=== PATIENT | male | born 1960 | race Caucasian/White ===

== ENCOUNTER → 2018-12-07 10:07 | Outpatient (CLI) | payer MEDICARE, SELFPAY ==
[2018-12-07 10:36] LABS: Erythrocyte Sedimentation Rate 3 mm/hr (0-20)
== END ==
PROVIDERS: Family Provider Internal Medicine; PCP Internal Medicine; Referring Provider Psychiatry & Neurology Neurology; Visit Provider Psychiatry & Neurology Neurology
DX: R51 Headache (principal)
CPT/HCPCS: 36415; 85652

== ENCOUNTER → 2018-12-23 09:16 | Outpatient (CLI) | payer OTHER, SELFPAY ==
--- NOTE | 2018-12-23 11:03 | MRI_ITS ---
STUDY: MRI BRAIN WITHOUT CONTRAST REASON FOR EXAM: Male, 58 years old. The patient presents with a history of headaches and seizures. TECHNIQUE: Standardized multiplanar fat and water weighted pulse sequences were obtained. COMPARISON: MRI BRAIN-April 29, 2017 FINDINGS: There is focal encephalomalacia of the gyrus rectus of the inferior left frontal lobe with adjacent white matter gliosis (axial T2 series 5, image 14; axial T2 FLAIR series 6, image 14. There is a second area of focal cortical gliosis involving the posterior superior frontal gyrus of the right cerebral hemisphere (axial T2 FLAIR series 6, image 22), which is unchanged as compared to the prior study of April 29, 2017. The multiple areas of white matter gliosis and encephalomalacia suggest traumatic injuries. Normal white matter tracts of the supratentorial brain. There is no evidence for recent intracranial ischemia or other cause of cytotoxic edema on diffusion weighted imaging (DWI). Normal T2* images of the brain without demonstrated susceptibility artifact. There is no demonstrated hemosiderin stain. Normal bilateral basal ganglia. Normal thalami. There is no extra-axial fluid accumulation. Normal flow voids within the major intracranial circulation suggesting patency by spin echo criteria. Normal sella turcica, pituitary gland, infundibular stalk, optic chiasm and hypothalamus. Normal tectal plate and pineal gland. Normal midbrain, elodia and medulla. Normal cerebellum. Normal basal cisterns. Normal bilateral temporal bones. Normal bilateral internal auditory canals. No demonstrated orbital abnormality, within the constraints of a routine brain study. Normal visualized paranasal sinuses. Normal calvarium and skull base. Normal visualized soft tissue structures. Normal visualized upper cervical spine. MRI/Brain without Contrast IMPRESSION: 1. 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 2. Focal cortical gliosis of the right posterior superior frontal gyrus, unchanged as compared the prior study of April 29, 2017. 3. The combined findings suggest remote closed head trauma. 4. Otherwise, normal examination. Electronically Signed: Chandra Negrete DO at 14:00 EDT Tel , Service support ,
--- NOTE | 2018-12-23 15:04 | EEG ---
- Electroencephalogram Date of service 12/23/2018 History EEG is being done in this 58 yr M to rule out seizures EEG Description: This is an 18 channel EEG with 10-20 lead placement system. Bipolar montages, and Referential montages were reviewed. Photic stimulation and Hyperventilation were performed. The posterior dominant rhythm is 9 HZ synchronous, symmetric, reacting to eye opening and closing. Photo stimulation elicited normal driving response but no abnormal photoparoxysmal response, Hyperventilation did not elicit any abnormal photoparoxysmal response. Sleep was identified. There is no abnormal background slowing noted. There was no epileptiform discharges or electrographic seizures noted during this recording. EEG Interpretation This is a normal awake and asleep EEG. There is no epileptiform discharges or electrographic seizures noted during the record.
== END ==
LOC: PSN 09:17
PROVIDERS: Family Provider Internal Medicine; PCP Internal Medicine; Referring Provider Psychiatry & Neurology Neurology; Visit Provider Psychiatry & Neurology Neurology
DX: R56.9 Unspecified convulsions (principal)
CPT/HCPCS: 70551; 95819

== ENCOUNTER → 2019-06-05 17:13 | Outpatient (CLI) | payer MEDICARE, SELFPAY ==
--- NOTE | 2019-06-05 17:20 | RAD_ITS ---
STUDY: X-RAY - LUMBAR SPINE REASON FOR EXAM: Male, 58 years old. Low back pain TECHNIQUE: 3 view(s) of the lumbar spine were obtained. COMPARISON: None FINDINGS: Normal lumbar lordosis. There is no substantial scoliosis. There is a normal alignment of the vertebrae. Normal vertebral bodies and endplates. Postsurgical changes at L5/S1 with a cage fusion device noted. No complications The soft tissue structures are unremarkable. RAD/Lumbar Spine 2 or 3 Views IMPRESSION: Postsurgical changes at L5/S1, no acute findings Electronically Signed: Neftaly López MD at 17:56 EST , Service support ,
== END ==
PROVIDERS: Family Provider Internal Medicine; PCP Internal Medicine; Referring Provider Anesthesiology Pain Medicine; Visit Provider Anesthesiology Pain Medicine
DX: M54.9 Dorsalgia, unspecified (principal)
CPT/HCPCS: 72100

== ENCOUNTER 2019-08-08 13:30 | Outpatient (RCR) | payer MEDICARE, SELFPAY ==
--- NOTE | 2019-06-14 15:20 | HP.PTEVAL_ITS ---
Patient's Visit Information VIANEY XAVIER is a 58 year old M referred to Physical Therapy by Dakota Wilcox MD with a diagnosis of BACK PAIN. Date of Evaluation: 06/14/19 Physical Therapist: Chintan Tong, PT, Cert MDT, OCS - Visit Plan Frequency: 2x /Week Duration: 4 Weeks Plan: NO ESTIM H/O GRANDMAL SEIZURES. PT INTERVETIONS DLS,POSTURAL EX'S,LE FLEXABLITY,LE STRENGTHENING - Subjective Findings: This 58 y/o male presents to physical therapy with back pain and leg weakness . Patient intially injury back 1996 at work lifting. 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 Most recently has had increase lumbar right lower . Patient seen pain management recommended by MD. Patient has had epidural injection past . Patient pain mainly located symmtrical lumbar . Aggravting factors bending,lifting,standing,extended walking. Alleviating MEDS but pain needed to be adjustments with abdominal issues. Bowel/bladder-. Denies parathesia/tingling -. Coughing/sneezing +. Patient pain affects sleeping. Patient pain affects ADL's ,function and housework ,activities. Patient is unbakle to work . Patient pain affects QOL.PRECAUTION: h/o grandmal seizures. SOCIAL: . VOCATION: disability - Pain Bilateral Back Pain Intensity (Out of 10): 7 Pain Intensity Range: 10 - Objective POSTURE: round shoulders ,modfoward posture. GAIT: reciprocal pattern foward posture slow monica. NEURO: denies parathesia/tingling,reflexes L3-4,L4-5,L5-S1 1/3. SYMMTRIES : ALIGN. MMT : QUADS/HAMS 4-/5,HIP FLEXION 4- /5,ANKLE 4/5. LUMBAR ROM: flexion mod loss,extension severe loss,side glides mod loss. FLEXABILITY: MOD tight. MUSCULAR ENDURANCE: poor core - Special Tests L/S Slump test left side: Negative L/S Slump test right side: Negative L/S Left Straight Leg Raise: Negative L/S Right Straight Leg Raise: Positive Lumbar Standing: Flexion - Mechanical Response: No effect Lumbar Standing: Flexion - Symptoms During Testing: Increases Lumbar Standing: Flexion - Symptoms After Testing: Worse Lumbar Standing: Extension - Mechanical Response: No effect Lumbar Standing: Extension - Symptoms During Testing: Increases Lumbar Standing: Extension - Symptoms After Testing: Worse Lumbar Standing: Right Side Glides - Mechanical Response: No effect Lumbar Standing: Right Side [place] - Symptoms During Testing: Increases Lumbar Standing: Right Side [place] - Symptoms After Testing: No worse Lumbar Standing: Left Side [place] - Mechanical Response: No effect Lumbar Standing: Left Side [place] - Symptoms During Testing: Increases Lumbar Standing: Left Side [place] - Symptoms After Testing: No worse - Goals Goal 1:: Independant with HEP Goal Time Frame: 4-6 Weeks Goal 2:: Improve posture for ADL'S /Body mechanics Goal Time Frame: 4-6 Weeks Goal 3:: Pateint to decrease lumbar pain by 50% or > to improve QOL. Goal Time Frame: 4-6 Weeks Goal 4:: Patient improve lumbar ROM for function of recovery Goal Time Frame: 4-6 Weeks Goal 5:: Patient improve back owestry score by 5 points or > to improve QOL. Goal Time Frame: 4-6 Weeks - Rehabilitation Potential Physical Therapy Diagnosis: This patient has comorbities undergoing h/o 2 surgery lumbar disectomy,fusion with pain ,decrease strength,poor lumbar ROM,poor muscular endurance abdominals affects walking,standing impairs ADL's Rehabilitation Potential: Good - Anticipated Interventions Patient/Client Instruction: Educate patient on: Condition, Plan of Care For the Purpose of:: To decrease pain, To increase ROM, To improve muscle performance and motor function, To improve ability to perform ADL's, To increase tolerance to activity/condition/position, To improve ability of physical actions for home/community/work/leisure, To increase flexibility/ROM, To improve endurance, To improve ability to perform tasks related to life management Therapeutic Exercise to Include: Strength training, Postural training, Flexibilty training, Dynamic Lumbar Stabilization Comment: BLE For the Purpose of:: To decrease pain, To increase ROM, To improve muscle performance and motor function, To improve ability to perform ADL's, To increase tolerance to activity/condition/position, To improve performance and independence with ADL's, To improve ability of physical actions for home/community/work/leisure, To increase flexibility/ROM, To prevent re-injury, To improve ability to perform tasks related to life management TENS: Yes IF ES: Yes Cryotherapy (ice pack, ice massage): Yes Thermo therapy (hot pack): Yes Ultrasound (thermal/non thermal): Yes For the Purpose of:: To decrease pain, To increase ROM, To improve nutrient delivery to tissue, To increase oxygenation perfusion, To improve health of tissue, To decrease soft tissue restriction Thank you for the opportunity to evaluate your patient. For Medicare and Medicare HMO plans, please review the plan of care and approve it. It will need to be FAXED BACK to us at [phone] for Medicare purposes. For Medicare only, by signing this I certify the plan of care. Please let me know if there are questions or concerns regarding this plan of care. Physician Signature: Date:
--- NOTE | 2019-08-01 15:31 | HP.PTREVAL ---
Dr. Dakota Wilcox MD, It has been my pleasure to treat VIANEY XAVIER over the last 11 visits for BACK PAIN. Please see the progress note below for an update on the physical therapy plan of care! Subjective: Patient seen recommended PT to cont. Patient reports getting stronger Objective/Function: POSTURE:trunkle flexed foward. PALPATION: tender L-S. NEURO: intact. MMT: quads/hams /hip 4/5. LUMBAR ROM: flexion mod loss,extension mod /severe loss. FLEXABLITY:hams mod limited. -SLR Plan Plan: cont with poc 2x/week for 4 weeks. DLS -ABD/BACK ,POSTURAL EX'S ,LE STRENGHENING,LE FLEXABLITY Goals Goal 1:: Independant with HEP Goal Time Frame: 4-6 Weeks Goal Progress: Goal Met Goal 2:: Improve posture for ADL'S /Body mechanics Goal Time Frame: 4-6 Weeks Goal Progress: Progressing Goal 3:: Pateint to decrease lumbar pain by 50% or > to improve QOL. Goal Time Frame: 4-6 Weeks Goal Progress: Progressing Goal 4:: Patient improve lumbar ROM for function of recovery Goal Time Frame: 4-6 Weeks Goal Progress: Progressing Goal 5:: Patient improve back owestry score by 5 points or > to improve QOL. Goal Time Frame: 4-6 Weeks Goal Progress: Progressing Anticipated Interventions Patient/Client Instruction: Educate patient on: Condition, Plan of Care For the Purpose of:: To decrease pain, To increase ROM, To improve muscle performance and motor function, To improve ability to perform ADL's, To increase tolerance to activity/condition/position, To improve ability of physical actions for home/community/work/leisure, To increase flexibility/ROM, To improve endurance, To improve ability to perform tasks related to life management Therapeutic Exercise to Include: Strength training, Postural training, Flexibilty training, Dynamic Lumbar Stabilization Comment: BLE For the Purpose of:: To decrease pain, To increase ROM, To improve muscle performance and motor function, To improve ability to perform ADL's, To increase tolerance to activity/condition/position, To improve performance and independence with ADL's, To improve ability of physical actions for home/community/work/leisure, To increase flexibility/ROM, To prevent re-injury, To improve ability to perform tasks related to life management TENS: Yes IF ES: Yes Cryotherapy (ice pack, ice massage): Yes Thermo therapy (hot pack): Yes Ultrasound (thermal/non thermal): Yes For the Purpose of:: To decrease pain, To increase ROM, To improve nutrient delivery to tissue, To increase oxygenation perfusion, To improve health of tissue, To decrease soft tissue restriction Please do not hesitate to contact me at [phone] by phone or if you have questions or concerns regarding this new plan of care! Sincerely, Chintan Tong, PT, Cert MDT, OCS
--- NOTE | 2019-09-18 13:43 | HP.PTDCNRP_ITS ---
VIANEY XAVIER was seen in my office for initial evaluation on 06/14/19. The following Plan of Care was established for this patient: Initial Frequency: 2x /Week Initial Duration: 4 Weeks Patient/Client Instruction: Educate patient on: Condition, Plan of Care For the Purpose of:: To decrease pain, To increase ROM, To improve muscle performance and motor function, To improve ability to perform ADL's, To increase tolerance to activity/condition/position, To improve ability of physical actions for home/community/work/leisure, To increase flexibility/ROM, To improve endurance, To improve ability to perform tasks related to life management Therapeutic Exercise to Include: Strength training, Postural training, Flexibilty training, Dynamic Lumbar Stabilization For the Purpose of:: To decrease pain, To increase ROM, To improve muscle performance and motor function, To improve ability to perform ADL's, To increase tolerance to activity/condition/position, To improve performance and independence with ADL's, To improve ability of physical actions for home/community/work/leisure, To increase flexibility/ROM, To prevent re-injury, To improve ability to perform tasks related to life management TENS: Yes IF ES: Yes Cryotherapy (ice pack, ice massage): Yes Thermo therapy (hot pack): Yes Ultrasound (thermal/non thermal): Yes For the Purpose of:: To decrease pain, To increase ROM, To improve nutrient delivery to tissue, To increase oxygenation perfusion, To improve health of t issue, To decrease soft tissue restriction This patient was last seen in our office . Pertinent comments regarding their Physical therapy will appear below: Patient seen for PT for lumbar pain focusing on DLS ,postural ex's strengthening. Patient tolerating ex's well ,thus at this time is d/c. At this point I will be discontinuing this patient from physical therapy. I would be happy to see this patient again in the future if found appropriate by the physician. Thank you! Chintan Tong, PT, Cert MDT, OCS
== END 2019-08-08 19:00 | disposition home or self-care (01) ==
LOC: PT 13:30
PROVIDERS: Family Provider Internal Medicine; PCP Internal Medicine; Referring Provider Anesthesiology Pain Medicine; Visit Provider Anesthesiology Pain Medicine
DX: M54.9 Dorsalgia, unspecified (principal); R29.898 Other symptoms and signs involving the musculoskeletal system
CPT/HCPCS: 97035; 97110; 97162

== ENCOUNTER → 2019-11-16 15:08 | Outpatient (CLI) | payer MEDICARE, SELFPAY ==
[2019-11-16 16:52] LABS: Amphetamine Urine VISTA NEGATIVE (<1000 ng/mL); Barbiturate Urine VISTA NEGATIVE (< 200 ng/mL); Benzodiazepine Urine VISTA NEGATIVE (< 200 ng/mL); Cocaine Urine VISTA NEGATIVE (< 300 ng/mL); Ecstacy Urine VISTA NEGATIVE (< 500 ng/mL); Methadone Urine VISTA NEGATIVE (< 300 ng/mL); PCP Urine VISTA NEGATIVE (< 25 ng/mL); THC Urine VISTA NEGATIVE (< 50 ng/mL); Vista UDS pH Range 7
== END ==
PROVIDERS: PCP Internal Medicine; Referring Provider Anesthesiology Pain Medicine; Visit Provider Anesthesiology Pain Medicine
DX: F11.20 Opioid dependence, uncomplicated (principal)
CPT/HCPCS: 80307

== ENCOUNTER → 2020-05-29 16:54 | Outpatient (CLI) | payer MEDICARE, SELFPAY ==
--- NOTE | 2020-05-29 17:04 | RAD_ITS ---
HISTORY: NO RECENT INJURY. NECK PAIN ADDITIONAL HISTORY: None provided. EXAMINATION/TECHNIQUE: XR Spine Cervical 4 or 5 Views Number of images including paperwork: 6 COMPARISON: None FINDINGS: VERTEBRAE: No acute fracture. VERTEBRAL ALIGNMENT: No traumatic subluxation. DISKS AND JOINTS: Mild disc space narrowing at C3-4. Mild to moderate disc space narrowing at C5-6. Uncovertebral degenerative changes. Facet arthropathy. SOFT TISSUES: Unremarkable paraspinous soft tissues. RAD/Cerv Spine 2 or 3 Views IMPRESSION: No acute findings. Cervical spondylosis. at 0446 Reported and signed by: Olena Rodrigues MD Electronically Signed: Olena Rodrigues MD at 4:46 EST Tel , Service support ,
== END ==
LOC: RAD 16:57
PROVIDERS: PCP Internal Medicine; Referring Provider Anesthesiology Pain Medicine; Visit Provider Anesthesiology Pain Medicine
DX: M54.2 Cervicalgia (principal)
CPT/HCPCS: 72040

== ENCOUNTER → 2020-07-23 13:15 | Outpatient (CLI) | payer MEDICARE, SELFPAY ==
[2020-07-23 14:17] LABS: Amphetamine Urine VISTA NEGATIVE (<1000 ng/mL); Barbiturate Urine VISTA NEGATIVE (< 200 ng/mL); Benzodiazepine Urine VISTA NEGATIVE (< 200 ng/mL); Cocaine Urine VISTA NEGATIVE (< 300 ng/mL); Ecstacy Urine VISTA NEGATIVE (< 500 ng/mL); Methadone Urine VISTA NEGATIVE (< 300 ng/mL); PCP Urine VISTA NEGATIVE (< 25 ng/mL); THC Urine VISTA NEGATIVE (< 50 ng/mL); Vista UDS pH Range 7
== END ==
PROVIDERS: PCP Internal Medicine; Referring Provider Anesthesiology Pain Medicine; Visit Provider Anesthesiology Pain Medicine
DX: F11.20 Opioid dependence, uncomplicated (principal)
CPT/HCPCS: 80307

== ENCOUNTER → 2020-10-22 15:29 | Outpatient (CLI) | payer MEDICARE, SELFPAY ==
--- NOTE | 2020-10-22 16:45 | MRI_ITS ---
STUDY: MRI LUMBAR SPINE WITHOUT CONTRAST REASON FOR EXAM: Male, 59 years old. Chronic back pain right leg pain to prior surgeries most recently in 1999 TECHNIQUE: Standardized fat and water weighted pulse sequences were obtained in the sagittal and axial planes. COMPARISON: Plain films 05 June 2019 FINDINGS: T12-L1: Normal endplates. Normal disc height, hydration and morphology. Normal bilateral facet joints. Normal central canal and bilateral lateral recesses. Normal bilateral intervertebral neural foramina. Normal lumbar lordosis. There is no substantial scoliosis. Normal conus medullaris that terminates at the L1 L1-2: Normal endplates. Normal disc height, hydration and morphology. Normal bilateral facet joints. Normal central canal and bilateral lateral recesses. Normal bilateral intervertebral neural foramina. L2-3: Normal endplates. Normal disc height, hydration and morphology. Normal bilateral facet joints. Normal central canal and bilateral lateral recesses. Normal bilateral intervertebral neural foramina. L3-4: Normal endplates. Normal disc height, hydration and morphology. Moderately degenerated bilateral facet joints. Normal central canal and bilateral lateral recesses. Normal bilateral intervertebral neural foramina. L4-5: Normal endplates. Normal disc height, hydration and morphology. Mildly degenerated bilateral facet joints. Normal central canal and bilateral lateral recesses. Normal bilateral intervertebral neural foramina. L5-S1: Disc fusion with metallic cage mildly degenerated bilateral facet joints. Normal central canal and bilateral lateral recesses. Normal bilateral intervertebral neural foramina. Normal visualized sacral ala. Normal visualized paraspinous soft tissue structures. MRI/Spine Lumbar (Routine) IMPRESSION: 1. Expected appearance of L5-S1 disc fusion. 2. Widely patent canal, no neural compression. Electronically Signed: Rodger Soler MD at 20:00 EDT Tel , Service support ,
== END ==
LOC: MRI 15:32
PROVIDERS: PCP Internal Medicine; Visit Provider Anesthesiology Pain Medicine
DX: M54.9 Dorsalgia, unspecified (principal); M79.604 Pain in right leg
CPT/HCPCS: 72148

== ENCOUNTER → 2021-02-03 15:56 | Outpatient (CLI) | payer MEDICARE, SELFPAY ==
[2021-02-03 17:30] LABS: Amphetamine Urine VISTA NEGATIVE (<1000 ng/mL); Barbiturate Urine VISTA NEGATIVE (< 200 ng/mL); Benzodiazepine Urine VISTA NEGATIVE (< 200 ng/mL); Cocaine Urine VISTA NEGATIVE (< 300 ng/mL); Ecstacy Urine VISTA NEGATIVE (< 500 ng/mL); Methadone Urine VISTA NEGATIVE (< 300 ng/mL); PCP Urine VISTA NEGATIVE (< 25 ng/mL); THC Urine VISTA NEGATIVE (< 50 ng/mL); Vista UDS pH Range 6
== END ==
PROVIDERS: PCP Internal Medicine; Referring Provider Anesthesiology Pain Medicine; Visit Provider Anesthesiology Pain Medicine
DX: F11.20 Opioid dependence, uncomplicated (principal)
CPT/HCPCS: 80307

== ENCOUNTER 2021-06-24 16:28 | Outpatient (CLI) | payer MEDICARE, SELFPAY ==
[2021-06-24 18:00] LABS: Amphetamine Urine VISTA NEGATIVE (<1000 ng/mL); Barbiturate Urine VISTA NEGATIVE (< 200 ng/mL); Benzodiazepine Urine VISTA NEGATIVE (< 200 ng/mL); Cocaine Urine VISTA NEGATIVE (< 300 ng/mL); Ecstacy Urine VISTA NEGATIVE (< 500 ng/mL); Methadone Urine VISTA NEGATIVE (< 300 ng/mL); PCP Urine VISTA NEGATIVE (< 25 ng/mL); THC Urine VISTA NEGATIVE (< 50 ng/mL); Vista UDS pH Range 7
== END 2021-06-24 23:59 | disposition short-term general hospital (02) ==
LOC: LAB 16:30
PROVIDERS: PCP Internal Medicine; Visit Provider Anesthesiology Pain Medicine
DX: F11.20 Opioid dependence, uncomplicated (principal)
CPT/HCPCS: 80307

== ENCOUNTER → 2021-12-08 | Outpatient (CLI) | payer OTHER, MEDICARE, SELFPAY ==
--- NOTE | 2021-12-08 15:51 | MRI_ITS ---
EXAM: MR LUMBAR SPINE WITHOUT AND WITH INTRAVENOUS CONTRAST CLINICAL INDICATION: lumbar-sacral radiculopathy Technologist Notes pain low back and rt leg,prev lumbar surgery 1997 and 1999 TECHNIQUE: Multiplanar and multisequence MR images of the lumbar spine without and with intravenous contrast. This report was created using [employer] report generation technology. CONTRAST: IV 20ML DOTAREM COMPARISON: Oct 22 2020 4:50pm FINDINGS: VERTEBRAE: Normal lumbar lordosis. There is no substantial scoliosis. Normal conus medullaris that terminates at the L1. Vertebral body heights are preserved. No spondylolisthesis. SPINAL CORD: See above. SOFT TISSUES: Unremarkable. DISCS/SPINAL CANAL/NEURAL FORAMINA: L1-L2: L1-2: Normal endplates. Normal disc height and morphology. Normal central canal and intervertebral neuroforamina. L2-L3: L2-3: Normal endplates. Normal disc height and morphology. Normal central canal and intervertebral neuroforamina. L3-L4: L3-4: Normal endplates. Normal disc height and morphology. Normal central canal and intervertebral neuroforamina. L4-L5: L4-5: Normal endplates. Normal disc height and morphology. Normal central canal and intervertebral neuroforamina. L5-S1: Disc fusion with metallic cage mildly degenerated bilateral facet joints. Normal central canal and bilateral lateral recesses. Normal bilateral intervertebral neural foramina. MRI/Spine Lumbar W/WO Contrast IMPRESSION: There are no acute findings. Electronically Signed: Renato Negrete MD at 20:51 EDT ,
[2021-12-09 18:56] LABS: CREATININE FINGERSTICK < 0.9 mg/dL (0.70-1.30); EGFR FINGERSTICK > 60.0000 mL/min (>60)
== END | disposition home or self-care (01) ==
LOC: MRI 15:51
PROVIDERS: PCP Internal Medicine; Visit Provider Orthopaedic Surgery
DX: M54.17 Radiculopathy, lumbosacral region (principal)
CPT/HCPCS: 72158; A9575

== ENCOUNTER → 2022-03-25 | Outpatient (CLI) | payer MEDICARE, SELFPAY ==
[2022-03-25 18:53] LABS: Amphetamine Urine VISTA NEGATIVE (<1000 ng/mL); Barbiturate Urine VISTA NEGATIVE (< 200 ng/mL); Benzodiazepine Urine VISTA NEGATIVE (< 200 ng/mL); Cocaine Urine VISTA NEGATIVE (< 300 ng/mL); Ecstacy Urine VISTA NEGATIVE (< 500 ng/mL); Methadone Urine VISTA NEGATIVE (< 300 ng/mL); PCP Urine VISTA NEGATIVE (< 25 ng/mL); THC Urine VISTA NEGATIVE (< 50 ng/mL); Vista UDS pH Range 7
== END | disposition home or self-care (01) ==
LOC: LABSPEC 17:23 → LAB 03-26 06:49
PROVIDERS: PCP Internal Medicine; Visit Provider Anesthesiology Pain Medicine
DX: F11.20 Opioid dependence, uncomplicated (principal)
CPT/HCPCS: 80307

== ENCOUNTER → 2022-11-02 | Outpatient (CLI) | payer MEDICARE, SELFPAY ==
[2022-11-02 19:08] LABS: Amphetamine Urine VISTA NEGATIVE (<1000 ng/mL); Barbiturate Urine VISTA NEGATIVE (< 200 ng/mL); Benzodiazepine Urine VISTA NEGATIVE (< 200 ng/mL); Cocaine Urine VISTA NEGATIVE (< 300 ng/mL); Ecstacy Urine VISTA NEGATIVE (< 500 ng/mL); Methadone Urine VISTA NEGATIVE (< 300 ng/mL); PCP Urine VISTA NEGATIVE (< 25 ng/mL); THC Urine VISTA NEGATIVE (< 50 ng/mL); Vista UDS pH Range 6
== END | disposition home or self-care (01) ==
PROVIDERS: PCP Internal Medicine; Referring Provider Anesthesiology Pain Medicine; Visit Provider Anesthesiology Pain Medicine
DX: F11.20 Opioid dependence, uncomplicated (principal)
CPT/HCPCS: 80307

== ENCOUNTER 2023-03-14 21:46 | Emergency (ER) | payer MEDICARE, SELFPAY ==
[2023-03-14 21:47] VITALS: BP 154/90; PULSE 102; RESP 90; TEMP 36.8; BMI 33.5
--- NOTE | 2023-03-14 22:29 | CT_ITS ---
STUDY: CT BRAIN WITHOUT CONTRAST REASON FOR EXAM: Male, 62 years old. Seizure RADIATION DOSAGE (If Supplied By Facility): CTDIvol = ( 44.99 ) mGy, DLP = ( 829.85 ) mGycm TECHNIQUE: Transaxial CT imaging of the brain was performed without administration of intravenous contrast material. Individualized dose optimization techniques were used for this CT. COMPARISON: December 23, 2018 MRI brain FINDINGS: Normal soft tissue structures. Normal calvarium. There is mild cerebral atrophy with widening of the extra-axial spaces and ventricular dilatation. Normal white matter tracts of the cerebral hemispheres. Normal basal ganglia and thalami. Normal brainstem. There is mild cerebellar atrophy. There is no intracranial hemorrhage. There is a persistent small focus of encephalomalacia within the left frontal lobe as seen on prior studies. There is mucoperiosteal inflammatory disease of the paranasal sinuses consistent with mild chronic sinusitis. CT/Brain/Head without Contrast IMPRESSION: Stable 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 No visualized acute hemorrhage infarct or edema. Electronically Signed: Vika Small MD at 23:20 EDT ,
[2023-03-14 22:45] LABS: Absolute Lymphocyte Count 2.84 X10^3/uL (0.83-4.51); Absolute Neutrophil Count 1.9 X10^3/uL (2.0-7.7); Basophil# 0.05 X10^3/uL; Basophil% 0.9 % (0-1); Eosinophil# 0.16 X10^3/uL; Eosinophils% 2.8 % (0-5); Hematocrit 41.2 % (40-54); Hemoglobin 13.7 g/dL (13.0-16.5); Lymphocyte # 2.84 X10^3/ul (0.83-4.51); Lymphocyte % 49.9 % (19-41); Mean Corp Hgb Conc 33.3 g/dL (32-36); Mean Corpuscular Hgb 31.1 pg (27.0-32.0); Mean Corpuscular Volume 93.6 fL (80-94); Mean Platelet Vol. 11.2 fl (6.2-12.0); Monocyte# 0.69 X10^3/uL; Monocyte% 12.1 % (0-10); NRBC Flagged by Analyzer 0 % (0-5); Neutrophil # 1.93 X10^3/uL (2.7-7.7); Neutrophil % 33.9 % (47-70); Platelet Count 197 K/mm3 (150-450); RBC Distribution Width CV 11.9 % (11.6-14.6); RBC Distribution Width SD 41.2 fl (35.1-43.9); White Blood Count 5.7 K/mm3 (4.4-11.0)
[2023-03-14] MEDS: levETIRAcetam IV 500 MG in 0.9% Normal Saline (100mL Bag) 100 ML 400 MG IV (22:55)
[2023-03-14 22:57] VITALS: BP 146/89; PULSE 87; RESP 18; O2SAT 93
[2023-03-14 23:00] LABS: Anion Gap 9 (5-15); BUN 12 mg/dL (7-18); BUN/Creat Ratio 11.3 RATIO (10-20); Calcium,Total 8.9 mg/dL (8.5-10.1); Chloride 107 mmol/L (98-107); Creatinine, Serum 1.06 mg/dL (0.70-1.30); EST Glomerular Filtration Rate 75 mL/min (>60); Est Glom Filt Rate - Afr Amer 91 mL/min (>60); Estimated Creatinine Clearance 74.61 ml/min; Glucose 136 mg/dL (74-106); Magnesium 2.2 mg/dL (1.6-2.6); Potassium 3.7 mmol/L (3.5-5.1); Sodium Level 141 mmol/L (136-145)
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
[2023-03-14 23:34] VITALS: BP 150/92; PULSE 81; RESP 14; O2SAT 96
[2023-03-17 12:09] LABS: KEPPRA (LEVETIRACETAM) 3.2 ug/mL (10.0-40.0)
== END 2023-03-14 23:45 | disposition home or self-care (01) ==
PROVIDERS: Emergency Provider Emergency Medicine; PCP Internal Medicine; Visit Provider Emergency Medicine
DX: G40.409 Other generalized epilepsy and epileptic syndromes, not intractable, without status epilepticus (principal); E78.00 Pure hypercholesterolemia, unspecified; F32.A Depression, unspecified; Z79.899 Other long term (current) drug therapy
CPT/HCPCS: 70450; 80048; 80177; 83735; 85025; 96365; 99285; A4216

== ENCOUNTER → 2023-07-14 | Outpatient (CLI) | payer MEDICARE, SELFPAY ==
--- OUTSIDE RECORDS SUMMARY | 2023-07-14 14:01 | XMS RPT_ITS | CCD ---
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/15 Dysthymic disorder 01/08/2011 12/04/2012 Sprain of lumbar region 01/08/2011 12/05/19 13 Pain in joint, site unspecified 11/15/2009 09/15/2016 Pain in limb 08/14/2009 09/15/2016 DJD (degenerative joint disease) 03/01/2009 09/15/2016 Stress fracture of the metatarsals 08/18/2007 09/15/2016 Enthesopathy of unspecified site 06/29/2007 09/15/2016 Other and unspecified disc disorder of lumbar re gion 08/18/2006 09/15/2016 Other acquired deformity of toe 05/01/2005 09/15/2016 PMH - PAST MEDICAL HISTORY OF Overview: chronic back pain PARTIAL EPILEPSY NEC NOT INTRACT 03/02/2014 Adjustment disorder with depressed mood 10/23/2020 Lumbago 12/15/2016 Depressive disorder, not elsewhere classified 09/15/2016 Other convulsions 12/04/2012 Displacement of lumbar inter vertebral disc without myelopathy 12/04/2012 documented as of this encounter (statuses as of 02/03/2022) [facility] History of Past illness Narrative* Problem Noted Date Resolved Date Hypocalcemia 11/07/2019 10/23/2020 Screening for colon cancer 01/01/201703/08 Overview: Added automatically from request for surgery [id number] Inconsistent drug urine toxicology. No opiate re fills. 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/15 Dysthymic disorder 01/08/2011 12/04/2012 Sprain of lumbar region 01/08/2011 12/05/19 13 Pain in joint, site unspecified 11/15/2009 09/15/2016 Pain in limb 08/14/2009 09/15/2016 DJD (degenerative joint disease) 03/01/2009 09/15/2016 Stress fracture of the metatarsals 08/18/2007 09/15/2016 Enthesopathy of unspecified site 06/29/2007 09/15/2016 Other and unspecified disc disorder of lumbar re gion 08/18/2006 09/15/2016 Other acquired deformity of toe 05/01/2005 09/15/2016 PMH - PAST MEDICAL HISTORY OF Overview: chronic back pain PARTIAL EPILEPSY NEC NOT INTRACT 03/02/2014 Adjustment disorder with depressed mood 10/23/2020 Lumbago 12/15/2016 Depressive disorder, not elsewhere classified 09/15/2016 Other convulsions 12/04/2012 Displacement of lumbar inter vertebral disc without myelopathy 12/04/2012 documented as of this encounter (statuses as of 02/27/2022) [facility] History of Past illness Narrative* Problem Noted Date Resolved Date Hypocalcemia 11/07/2019 10/23/2020 Screening for colon cancer 01/01/201703/08 Overview: Added automatically from request for surgery [id number] Inconsistent drug urine toxicology. No opiate re fills. 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/15 Dysthymic disorder 01/08/2011 12/04/2012 Sprain of lumbar region 01/08/2011 12/05/19 13 Pain in joint, site unspecified 11/15/2009 09/15/2016 Pain in limb 08/14/2009 09/15/2016 DJD (degenerative joint disease) 03/01/2009 09/15/2016 Stress fracture of the metatarsals 08/18/2007 09/15/2016 Enthesopathy of unspecified site 06/29/2007 09/15/2016 Other and unspecified disc disorder of lumbar re gion 08/18/2006 09/15/2016 Other acquired deformity of toe 05/01/2005 09/15/2016 PMH - PAST MEDICAL HISTORY OF Overview: chronic back pain PARTIAL EPILEPSY NEC NOT INTRACT 03/02/2014 Adjustment disorder with depressed mood 10/23/2020 Lumbago 12/15/2016 Depressive disorder, not elsewhere classified 09/15/2016 Other convulsions 12/04/2012 Displacement of lumbar inter vertebral disc without myelopathy 12/04/2012 documented as of this encounter (statuses as of 03/20/2022) [facility] History of Past illness Narrative* Problem Noted Date Resolved Date Hypocalcemia 11/07/2019 10/23/2020 Screening for colon cancer 01/01/201703/08 Overview: Added automatically from request for surgery [id number] Inconsistent drug urine toxicology. No opiate re fills. 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/15 Dysthymic disorder 01/08/2011 12/04/2012 Sprain of lumbar region 01/08/2011 12/05/19 13 Pain in joint, site unspecified 11/15/2009 09/15/2016 Pain in limb 08/14/2009 09/15/2016 DJD (degenerative joint disease) 03/01/2009 09/15/2016 Stress fracture of the metatarsals 08/18/2007 09/15/2016 Enthesopathy of unspecified site 06/29/2007 09/15/2016 Other and unspecified disc disorder of lumbar re gion 08/18/2006 09/15/2016 Other acquired deformity of toe 05/01/2005 09/15/2016 PMH - PAST MEDICAL HISTORY OF Overview: chronic back pain PARTIAL EPILEPSY NEC NOT INTRACT 03/02/2014 Adjustment disorder with depressed mood 10/23/2020 Lumbago 12/15/2016 Depressive disorder, not elsewhere classified 09/15/2016 Other convulsions 12/04/2012 Displacement of lumbar inter vertebral disc without myelopathy 12/04/2012 documented as of this encounter (statuses as of 03/30/2022) [facility] History of Past illness Narrative* Problem Noted Date Resolved Date Hypocalcemia 11/07/2019 10/23/2020 Screening for colon cancer 01/01/201703/08 Overview: Added automatically from request for surgery [id number] Inconsistent drug urine toxicology. No opiate re fills. 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/15 Dysthymic disorder 01/08/2011 12/04/2012 Sprain of lumbar region 01/08/2011 12/05/19 13 Pain in joint, site unspecified 11/15/2009 09/15/2016 Pain in limb 08/14/2009 09/15/2016 DJD (degenerative joint disease) 03/01/2009 09/15/2016 Stress fracture of the metatarsals 08/18/2007 09/15/2016 Enthesopathy of unspecified site 06/29/2007 09/15/2016 Other and unspecified disc disorder of lumbar re gion 08/18/2006 09/15/2016 Other acquired deformity of toe 05/01/2005 09/15/2016 PMH - PAST MEDICAL HISTORY OF Overview: chronic back pain PARTIAL EPILEPSY NEC NOT INTRACT 03/02/2014 Adjustment disorder with depressed mood 10/23/2020 Lumbago 12/15/2016 Depressive disorder, not elsewhere classified 09/15/2016 Other convulsions 12/04/2012 Displacement of lumbar inter vertebral disc without myelopathy 12/04/2012 documented as of this encounter (statuses as of 04/17/2022) [facility] History of Past illness Narrative* Problem Noted Date Resolved Date Hypocalcemia 11/07/2019 10/23/2020 Screening for colon cancer 01/01/201703/08 Overview: Added automatically from request for surgery [id number] Inconsistent drug urine toxicology. No opiate re fills. 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/15 Dysthymic disorder 01/08/2011 12/04/2012 Sprain of lumbar region 01/08/2011 12/05/19 13 Pain in joint, site unspecified 11/15/2009 09/15/2016 Pain in limb 08/14/2009 09/15/2016 DJD (degenerative joint disease) 03/01/2009 09/15/2016 Stress fracture of the metatarsals 08/18/2007 09/15/2016 Enthesopathy of unspecified site 06/29/2007 09/15/2016 Other and unspecified disc disorder of lumbar re gion 08/18/2006 09/15/2016 Other acquired deformity of toe 05/01/2005 09/15/2016 PMH - PAST MEDICAL HISTORY OF Overview: chronic back pain PARTIAL EPILEPSY NEC NOT INTRACT 03/02/2014 Adjustment disorder with depressed mood 10/23/2020 Lumbago 12/15/2016 Depressive disorder, not elsewhere classified 09/15/2016 Other convulsions 12/04/2012 Displacement of lumbar inter vertebral disc without myelopathy 12/04/2012 documented as of this encounter (statuses as of 07/13/2022) [facility] History of Past illness Narrative* Problem Noted Date Resolved Date Hypocalcemia 11/07/2019 10/23/2020 Screening for colon cancer 01/01/201703/08 Overview: Added automatically from request for surgery [id number] Inconsistent drug urine toxicology. No opiate re fills. 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/15 Dysthymic disorder 01/08/2011 12/04/2012 Sprain of lumbar region 01/08/2011 12/05/19 13 Pain in joint, site unspecified 11/15/2009 09/15/2016 Pain in limb 08/14/2009 09/15/2016 DJD (degenerative joint disease) 03/01/2009 09/15/2016 Stress fracture of the metatarsals 08/18/2007 09/15/2016 Enthesopathy of unspecified site 06/29/2007 09/15/2016 Other and unspecified disc disorder of lumbar re gion 08/18/2006 09/15/2016 Other acquired deformity of toe 05/01/2005 09/15/2016 PMH - PAST MEDICAL HISTORY OF Overview: chronic back pain PARTIAL EPILEPSY NEC NOT INTRACT 03/02/2014 Adjustment disorder with depressed mood 10/23/2020 Lumbago 12/15/2016 Depressive disorder, not elsewhere classified 09/15/2016 Other convulsions 12/04/2012 Displacement of lumbar inter vertebral disc without myelopathy 12/04/2012 documented as of this encounter (statuses as of 08/10/2022) [facility] History of Past illness Narrative* Problem Noted Date Resolved Date Hypocalcemia 11/07/2019 10/23/2020 Screening for colon cancer 01/01/201703/08 Overview: Added automatically from request for surgery [id number] Inconsistent drug urine toxicology. No opiate re fills. 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/15 Dysthymic disorder 01/08/2011 12/04/2012 Sprain of lumbar region 01/08/2011 12/05/19 13 Pain in joint, site unspecified 11/15/2009 09/15/2016 Pain in limb 08/14/2009 09/15/2016 DJD (degenerative joint disease) 03/01/2009 09/15/2016 Stress fracture of the metatarsals 08/18/2007 09/15/2016 Enthesopathy of unspecified site 06/29/2007 09/15/2016 Other and unspecified disc disorder of lumbar re gion 08/18/2006 09/15/2016 Other acquired deformity of toe 05/01/2005 09/15/2016 PMH - PAST MEDICAL HISTORY OF Overview: chronic back pain PARTIAL EPILEPSY NEC NOT INTRACT 03/02/2014 Adjustment disorder with depressed mood 10/23/2020 Lumbago 12/15/2016 Depressive disorder, not elsewhere classified 09/15/2016 Other convulsions 12/04/2012 Displacement of lumbar inter vertebral disc without myelopathy 12/04/2012 documented as of this encounter (statuses as of 08/28/2022) [facility] History of Past illness Narrative* Problem Noted Date Resolved Date Hypocalcemia 11/07/2019 10/23/2020 Screening for colon cancer 01/01/201703/08 Overview: Added automatically from request for surgery [id number] Inconsistent drug urine toxicology. No opiate re fills. 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/15 Dysthymic disorder 01/08/2011 12/04/2012 Sprain of lumbar region 01/08/2011 12/05/19 13 Pain in joint, site unspecified 11/15/2009 09/15/2016 Pain in limb 08/14/2009 09/15/2016 DJD (degenerative joint disease) 03/01/2009 09/15/2016 Stress fracture of the metatarsals 08/18/2007 09/15/2016 Enthesopathy of unspecified site 06/29/2007 09/15/2016 Other and unspecified disc disorder of lumbar re gion 08/18/2006 09/15/2016 Other acquired deformity of toe 05/01/2005 09/15/2016 PMH - PAST MEDICAL HISTORY OF Overview: chronic back pain PARTIAL EPILEPSY NEC NOT INTRACT 03/02/2014 Adjustment disorder with depressed mood 10/23/2020 Lumbago 12/15/2016 Depressive disorder, not elsewhere classified 09/15/2016 Other convulsions 12/04/2012 Displacement of lumbar inter vertebral disc without myelopathy 12/04/2012 documented as of this encounter (statuses as of 09/17/2022) [facility] of Past illness Narrative* Problem Noted Date Resolved Date Hypocalcemia 11/07/2019 10/23/2020 Screening for colon cancer 01/01/201703/08 Overview: Added automatically from request for surgery [id number] Inconsistent drug urine toxicology. No opiate re fills. 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/15 Dysthymic disorder 01/08/2011 12/04/2012 Sprain of lumbar region 01/08/2011 12/05/19 13 Pain in joint, site unspecified 11/15/2009 09/15/2016 Pain in limb 08/14/2009 09/15/2016 DJD (degenerative joint disease) 03/01/2009 09/15/2016 Stress fracture of the metatarsals 08/18/2007 09/15/2016 Enthesopathy of unspecified site 06/29/2007 09/15/2016 Other and unspecified disc disorder of lumbar re gion 08/18/2006 09/15/2016 Other acquired deformity of toe 05/01/2005 09/15/2016 PMH - PAST MEDICAL HISTORY OF Overview: chronic back pain PARTIAL EPILEPSY NEC NOT INTRACT 03/02/2014 Adjustment disorder with depressed mood 10/23/2020 Lumbago 12/15/2016 Depressive disorder, not elsewhere classified 09/15/2016 Other convulsions 12/04/2012 Displacement of lumbar inter vertebral disc without myelopathy 12/04/2012 documented as of this encounter (statuses as of 09/29/2022) [facility] Past illness Narrative* Problem Noted Date Diagnosed Date Resolved Date Hypocalcemia 11/07/2019 10/23/2020 Screening for colon cancer 01/01/2017 1 Overview: Added automatically from request for surgery [id number] Inconsistent drug urine toxi cology. No opiate refills. 12/19/2016 03/08/2018 DDD (degenerative disc disease), lumbar 02/23/2016 09/15/2016 HNP (herniated nucleus pulposus), lumbar 02/23/2016 09/15/2016 Dysthymic disorder 12/04/2012 7 Sprain of lumbar region 12/04/201208/23 MDD (major depressive disorder) 01/08/2011 09/15/2016 Organic affective disorder 01/08/2011 0 09/15/2016 Dysthymic disorder 01/08/2011 3 Sprain of lumbar region 01/08/2011 0708/2012 Pain in joint, site unspecified 11/15/2009 09/15/2016 Pain in limb 08/14/2009 09/15/2016 DJD (degenerative joint disease) 03/01/2009 09/15/2016 Stress fracture of the metatarsals 08/18/2007 09/15/2016 Enthesopathy of unspecified site 06/29/2007 09/15/2016 Other and unspecified disc d isorder of lumbar region 08/18/2006 09/15/2016 Other acquired deformity of toe 05/01/2005 09/15/2016 PMH - PAST MEDICAL HISTORY OF 04/30/2015 Overview: chronic back pain PARTIAL EPILEPSY NEC NOT INTRACT 03/02/2014 Adjustment disorder with depressed mood 10/23/2020 Lumbago 12/15/2016 Depressive disorder, not elsewhere classified 09/15/2016 Other convulsions 12/04/2012 Displacement of lumbar inter vertebral disc without myelopathy 12/04/2012 documented as of this encounter (statuses as of 01/22/2023) [facility] Past illness Narrative* Problem Noted Date Diagnosed Date Resolved Date Hypocalcemia 11/07/2019 10/23/2020 Screening for colon cancer 01/01/2017 1 Overview: Added automatically from request for surgery [id number] Inconsistent drug urine toxi cology. No opiate refills. 12/19/2016 03/08/2018 DDD (degenerative disc disease), lumbar 02/23/2016 09/15/2016 HNP (herniated nucleus pulposus), lumbar 02/23/2016 09/15/2016 Dysthymic disorder 12/04/2012 7 Sprain of lumbar region 12/04/201208/23 MDD (major depressive disorder) 01/08/2011 09/15/2016 Organic affective disorder 01/08/2011 0 09/15/2016 Dysthymic disorder 01/08/2011 3 Sprain of lumbar region 01/08/201111/21 Pain in joint, site unspecified 11/15/2009 09/15/2016 Pain in limb 08/14/2009 09/15/2016 DJD (degenerative joint disease) 03/01/2009 09/15/2016 Stress fracture of the metatarsals 08/18/2007 09/15/2016 Enthesopathy of unspecified site 06/29/2007 09/15/2016 Other and unspecified disc d isorder of lumbar region 08/18/2006 09/15/2016 Other acquired deformity of toe 05/01/2005 09/15/2016 PMH - PAST MEDICAL HISTORY OF 04/30/2015 Overview: chronic back pain PARTIAL EPILEPSY NEC NOT INTRACT 03/02/2014 Adjustment disorder with depressed mood 10/23/2020 Lumbago 12/15/2016 Depressive disorder, not elsewhere classified 09/15/2016 Other convulsions 12/04/2012 Displacement of lumbar inter vertebral disc without myelopathy 12/04/2012 documented as of this encounter (statuses as of 02/27/2023) [facility] Past illness Narrative* Problem Noted Date Diagnosed Date Resolved Date Hypocalcemia 11/07/2019 10/23/2020 Screening for colon cancer 01/01/2017 1 Overview: Added automatically from request for surgery [id number] Inconsistent drug urine toxi cology. No opiate refills. 12/19/2016 03/08/2018 DDD (degenerative disc disease), lumbar 02/23/2016 09/15/2016 HNP (herniated nucleus pulposus), lumbar 02/23/2016 09/15/2016 Dysthymic disorder 12/04/2012 7 Sprain of lumbar region 12/04/201208/23 MDD (major depressive disorder) 01/08/2011 09/15/2016 Organic affective disorder 01/08/2011 0 09/15/2016 Dysthymic disorder 01/08/2011 3 Sprain of lumbar region 01/08/201111/21 Pain in joint, site unspecified 11/15/2009 09/15/2016 Pain in limb 08/14/2009 09/15/2016 DJD (degenerative joint disease) 03/01/2009 09/15/2016 Stress fracture of the metatarsals 08/18/2007 09/15/2016 Enthesopathy of unspecified site 06/29/2007 09/15/2016 Other and unspecified disc d isorder of lumbar region 08/18/2006 09/15/2016 Other acquired deformity of toe 05/01/2005 09/15/2016 PMH - PAST MEDICAL HISTORY OF 04/30/2015 Overview: chronic back pain PARTIAL EPILEPSY NEC NOT INTRACT 03/02/2014 Adjustment disorder with depressed mood 10/23/2020 Lumbago 12/15/2016 Depressive disorder, not elsewhere classified 09/15/2016 Other convulsions 12/04/2012 Displacement of lumbar inter vertebral disc without myelopathy 12/04/2012 documented as of this encounter (statuses as of 03/28/2023) [facility] Degeneration of lumbar or lumbosacral intervertebral disc Right sided sciatica Sciatica Hyperlipidemia, unspecified hyperlipidemia type [facility] Degeneration of lumbar or lumbosacral intervertebral disc- Primary Convulsions, unspecified convulsion type (HCC) Right sided sciatica Sciatica [facility] Special screening for malignant neoplasms, colon- Primary Degeneration of lumbar or lumbosacral intervertebral disc Need for COVID-19 vaccine Convulsions, unspecified convulsion type (HCC) [facility] Family history of colon cancer in mother- Primary Special screening for malignant neoplasms, [facility] Convulsions, unspecified convulsion type (HCC) [facility] Diagnosis Degeneration of lumbar or lumbosacral intervertebral disc Right sided sciatica Sciatica [facility] Diagnosis 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 History of traumatic brain injury Personal history of traumatic brain injury Convulsions, unspecified convulsion type (HCC) [facility] Diagnosis Spinal stenosis of lumbar region without neurogenic claudication- Primary Spinal stenosis, lumbar region, without neurogenic claudication Radiculopathy, lumbar region Thoracic or lumbosacral neuritis or radiculitis, unspecified documented in this encounter [facility] note* Diagnosis Degeneration of lumbar or lumbosacral intervertebral disc- Primary Convulsions, unspecified convulsion type (HCC) Right sided sciatica Sciatica Hyperlipidemia, unspecified hyperlipidemia type Need for vaccination Need for prophylactic vaccination and inoculation against unspecified single disease documented in this encounter [facility] note* Diagnosis Need for vaccination- Primary Need for prophylactic vaccination and inoculation against unspecified single disease documented in this encounter [facility] note* Diagnosis Need for vaccination- Primary Need for prophylactic vaccination and inoculation against unspecified single disease documented in this encounter [facility] note* Diagnosis Convulsions, unspecified convulsion type (HCC) documented in this encounter [facility] note* Diagnosis Presbyopia- Primary documented in this encounter [facility] note* Diagnosis Degeneration of lumbar or lumbosacral intervertebral disc Right sided sciatica Sciatica documented in this encounter [facility] note* Diagnosis Spinal stenosis of lumbar region without neurogenic claudication Spinal stenosis, lumbar region, without neurogenic claudication Radiculopathy, lumbar region Thoracic or lumbosacral neuritis or radiculitis, unspecified [facility] Outpatient Procedure (Routine) - Pending Review Specialty Diagnoses / Procedures Referred By Anika lopez Referred To Contact [facility] Diagnoses Special screening for malignant neoplasms, colon Procedures COLONOSCOPY SCREENING COLONOSCOPY FLX DX W/COLLJ SPEC WHEN Ananda Quinones MD [facility] [place] [address] [facility] [address] [place] [id number] Referral ID Status Reason Start Date Expiration Date Visits Requested Visits Authorized [id number] Pending Review Auto-Generat ed Referral 12/26/2021 12/26/2022 1 1 [facility] Outpatient Procedure (Routine) - Closed Specialty Diagnoses / Procedures Referred By Anika lopez Referred To Contact [facility] Diagnoses Special screening for malignant neoplasms, colon Procedures COLONOSCOPY SCREENING COLONOSCOPY FLX DX W/COLLJ SPEC WHEN Ananda Quinones MD [address] [place] [address] [facility] [address] [place] [address] Referral ID Status Reason Start Date Expiration Date V isits Requested Visits Authorized [id number] Closed Auto-Generate d Referral 12/26/2021 05/23/2022 1 1 [facility] Outpatient Procedure (Routine) - Closed Specialty Diagnoses / Procedures Referred By Anika lopez Referred To Contact [facility] Diagnoses Special screening for malignant neoplasms, colon Procedures COLONOSCOPY SCREENING COLONOSCOPY FLX DX W/COLLJ SPEC WHEN Ananda Quinones MD [address] [place] [address] [facility] [address] [place] [address] Referral ID Status Reason Start Date Expiration Date V isits Requested Visits Authorized [id number] Closed Auto-Generate d Referral 12/26/2021 05/23/2022 1 1 [facility] Summary Purpose Family History No Family History Records FoundNo Family History Records FoundNo Family History Records Found Advance Directives No Advanced Directives Records FoundDocuments on File Type Date Recorded Patient Outreach Director Expl anation Advance Directive(s) 01/20/2017 11:58 AM Documents on File Type Date Recorded Patient Outreach Director Expl anation Advance Directive(s) 01/20/2017 11:58 AM Reason for Referral Specialty Diagnoses / Procedures Referred By Anika lopez Referred To Contact Orthopedics Diagnoses Degeneration of lumbar or lumbosacral intervertebral disc Procedures CONSULT TO ORTHOPAEDICS Ananda Aguilar MD [address] [place] [address] Referral ID Status Reason Start Date Expiration Date Visits Requested Visits Authorized [id number] Ref Not Required PCP Requested Referral 10/23/2021 10/23/2022 1 1 Specialty Diagnoses / Procedures Referred By Contac t Referred To Contact CT IMAGING Diagnoses Spinal stenosis of lumbar region without neurogenic claudication Radiculopathy, lumbar region Procedures CT LUMBAR SPINE WO IVCON CT LUMBAR SPINE W/O CONTRAST MATERIAL Karla Mccann, SOFTWARE QUALITY ASSURANCE ANALYST.EMERGENCY DEPARTMENT CLINICIAN [id number] Imaging Referral ID Status Reason Start Date Expiration Date Visits Requested Visits Authorized [id number] Authorized Auto-Generat ed Referral 2 05/15/2023 1 1 Specialty Diagnoses / Procedures Referred By Contac t Referred To Contact XR IMAGING Diagnoses Spinal stenosis of lumbar region without neurogenic claudication Radiculopathy, lumbar region Procedures XR LUMBAR LIMITED 2V AP/LAT RADEX SPINE LUMBOSACRAL 2/3 VIEWS Karla Mccann, SOFTWARE QUALITY ASSURANCE ANALYST.EMERGENCY DEPARTMENT CLINICIAN [address] [id number] Xr Imaging Referral ID Status Reason Start Date Expiration Date Visits Requested Visits Authorized [id number] Authorized Auto-Generat ed Referral 2 05/23/2022 1 1 Specialty Diagnoses / Procedures Referred By Contac t Referred To Contact CT IMAGING Diagnoses Spinal stenosis of lumbar region without neurogenic claudication Radiculopathy, lumbar region Procedures CT LUMBAR SPINE WO IVCON CT LUMBAR SPINE W/O CONTRAST MATERIAL Karla Mccann, SOFTWARE QUALITY ASSURANCE ANALYST.EMERGENCY DEPARTMENT CLINICIAN [phone] Imaging [place] [address] Referral ID Status Reason Start Date Expiration Date V isits Requested Visits Authorized [id number] Closed Auto-Generate d Referral 04/15/2022 05/15/2023 1 1 Medications Administered Section Inactive Administered Medications - up to 3 most recent administrations Medication Order MAR Action Action Date Dose Rate Site diphenhydrAMINE 12.5-50 mg injection (BENADRYL) 12.5-50 mg, INTRAVENOUS, DIRECTED, Starting on Wed01/19/22 at 1200, Until Wed01/19/22 at 1559, DOSING DIRECTED BY PHYSICIAN FOR PROCEDURAL SEDATION ONLY, Intraprocedure Given 01/19/2022 11:40 AM EDT 50 mg fentaNYL 50 mcg/mL 25-100 mcg injection (SUBLIMAZE) 25-100 mcg, INTRAVENOUS, DIRECTED, Starting on Wed01/19/22 at 1200, Until Wed01/19/22 at 1559, DOSING DIRECTED BY PHYSICIAN FOR PROCEDURAL SEDATION ONLY, Intraprocedure Given 01/19/2022 11:45 AM EDT 50 mcg Active Administered Medications - up to 3 most recent administrations Medication Order MAR Action Action Date Dose Rate Site PHENYLephrine 2.5 % 1 Drop (AK-DILATE, FLY-SYNEPHRINE) 1 Drop, BOTH EYES, DIRECTED, Starting on Wed01/22/23 at 1500, Until 01/23/23 at 0259, Administer for dilation PROTECT FROM LIGHT Given 01/22/2023 2:45 PM EDT 1 Drop proparacaine 0.5 % 1 Drop (ALCAINE) 1 Drop, BOTH EYES, DIRECTED, Starting on Wed01/22/23 at 1500, Until 01/23/23 at 0259, Administer for pneumo tonometry, tonopen tonometry, or pachymetry. In the event of a proparacaine shortage, administer tetracaine 0.5% ophthalmic drops 1 drop in the left eye as directed for pneumo tonometry, tonopen tonometry, or pachymetry Given 01/22/2023 2:45 PM EDT 1 Drop tropicamide 1 % 1 Drop (MYDRIACYL) 1 Drop, BOTH EYES, DIRECTED, Starting on Wed01/22/23 at 1500, Until 01/23/23 at 0259, Administer for dilation Given 01/22/2023 2:45 PM EDT 1 Drop Additional Source Comments (unrecognized sect ion and content) No Status Records FoundNo Status Records FoundNo Status Records Found INFORMATION SOURCE (unrecogn ized section and content) DATE CREATED AUTHOR AUTHOR'S ORGANIZ ATION 08/08/2020 [facility] DATE CREATED AUTHOR AUTHOR'S ORGANIZ ATION 07/10/2023 [facility] Source Comments (unrecognize d section and content) In the event this informatio n is protected by the Federal Confidentiality of Alcohol and Drug Abuse Patient Records regulations: The Federal rules restrict any use of the information to criminally investigate or prosecute any alcohol or drug abuse patient.[facility] the event this information is protected by the Federal Confidentiality of Alcohol and Drug Abuse Patient Records regulations: The Federal rules restrict any use of the information to criminally investigate or prosecute any alcohol or drug abuse patient.[facility] the event this information is protected by the Federal Confidentiality of Alcohol and Drug Abuse Patient Records regulations: The Federal rules restrict any use of the information to criminally investigate or prosecute any alcohol or drug abuse patient.[facility] the event this information is protected by the Federal Confidentiality of Alcohol and Drug Abuse Patient Records regulations: The Federal rules restrict any use of the information to criminally investigate or prosecute any alcohol or drug abuse patient.[facility] Hospital[facility] the event this information is protected by the Federal Confidentiality of Alcohol and Drug Abuse Patient Records regulations: The Federal rules restrict any use of the information to criminally investigate or prosecute any alcohol or drug abuse patient.[facility] the event this information is protected by the Federal Confidentiality of Alcohol and Drug Abuse Patient Records regulations: The Federal rules restrict any use of the information to criminally investigate or prosecute any alcohol or drug abuse patient.[facility] the event this information is protected by the Federal Confidentiality of Alcohol and Drug Abuse Patient Records regulations: The Federal rules restrict any use of the information to criminally investigate or prosecute any alcohol or drug abuse patient.[facility] Hospital[facility] the event this information is protected by the Federal Confidentiality of Alcohol and Drug Abuse Patient Records regulations: The Federal rules restrict any use of the information to criminally investigate or prosecute any alcohol or drug abuse patient.[facility] the event this information is protected by the Federal Confidentiality of Alcohol and Drug Abuse Patient Records regulations: The Federal rules restrict any use of the information to criminally investigate or prosecute any alcohol or drug abuse patient.[facility] Hospital[facility] the event this information is protected by the Federal Confidentiality of Alcohol and Drug Abuse Patient Records regulations: The Federal rules restrict any use of the information to criminally investigate or prosecute any alcohol or drug abuse patient.[facility] the event this information is protected by the Federal Confidentiality of Alcohol and Drug Abuse Patient Records regulations: The Federal rules restrict any use of the information to criminally investigate or prosecute any alcohol or drug abuse patient.[facility] Hospital[facility] the event this information is protected by the Federal Confidentiality of Alcohol and Drug Abuse Patient Records regulations: The Federal rules restrict any use of the information to criminally investigate or prosecute any alcohol or drug abuse patient.[facility] HospitalIn the event this information is protected by the Federal Confidentiality of Alcohol and Drug Abuse Patient Records regulations: The Federal rules restrict any use of the information to criminally investigate or prosecute any alcohol or drug abuse patient.[facility] Hospital[facility] the event this information is protected by the Federal Confidentiality of Alcohol and Drug Abuse Patient Records regulations: The Federal rules restrict any use of the information to criminally investigate or prosecute any alcohol or drug abuse patient.[facility] Hospital[facility] the event this information is protected by the Federal Confidentiality of Alcohol and Drug Abuse Patient Records regulations: The Federal rules restrict any use of the information to criminally investigate or prosecute any alcohol or drug abuse patient.[facility] Hospital[facility] the event this information is protected by the Federal Confidentiality of Alcohol and Drug Abuse Patient Records regulations: The Federal rules restrict any use of the information to criminally investigate or prosecute any alcohol or drug abuse patient.[facility] Hospital[facility] the event this information is protected by the Federal Confidentiality of Alcohol and Drug Abuse Patient Records regulations: The Federal rules restrict any use of the information to criminally investigate or prosecute any alcohol or drug abuse patient.[facility] Hospital[facility] the event this information is protected by the Federal Confidentiality of Alcohol and Drug Abuse Patient Records regulations: The Federal rules restrict any use of the information to criminally investigate or prosecute any alcohol or drug abuse patient.[facility] Hospital[facility] the event this information is protected by the Federal Confidentiality of Alcohol and Drug Abuse Patient Records regulations: The Federal rules restrict any use of the information to criminally investigate or prosecute any alcohol or drug abuse patient.[facility] Reason for Visit (unrecogniz ed section and content) Reason Comments F/U 6 months Reason Comments Results Reason Comments Follow Up Reason Comments Refill Request Reason Onset Date Comments Refill Request 02/26/2022 Reason Comments Follow Up Follow up Reason Comments New Patient Reason Comments F/U 6 months Reason Comments Imm/Inj Reason Comments Orders Reason Comments Follow Up Reason Comments Comprehensive Eye Exam Specialty Diagnoses / Procedures Referred By Contac t Referred To Contact Ophthalmology Diagnoses Screening for glaucoma Procedures CONSULT TO OPHTHALMOLOGY OFFICE/OUTPATIENT [facility] MDM 60-74 MINUTES Ananda Aguilar MD [address] [place] [address] Referral ID Status Reason Start Date Expiration Date Visits Requested Visits Authorized [id number] Pending Review PCP Requested Referral 01/14/2023 01/14/2024 1 1 Reason Onset Date Comments Refill Request 02/25/[address] Specialty Diagnoses / Procedures Referred By Contac t Referred To Contact CT IMAGING Diagnoses Spinal stenosis of lumbar region without neurogenic claudication Radiculopathy, lumbar region Procedures CT LUMBAR SPINE WO IVCON CT LUMBAR SPINE W/O CONTRAST MATERIAL Karla Mccann, SOFTWARE QUALITY ASSURANCE ANALYST.EMERGENCY DEPARTMENT CLINICIAN [address] [place] [phone] Imaging [id number] Referral ID Status Reason Start Date Expiration Date V isits Requested Visits Authorized [id number] Closed Auto-Generate d Referral 04/15/2022 05/15/2023 1 1 Care Teams (unrecognized sec tion and content) [employer]der 2Nd Shift Relationship Specialty Start Date End Date Ananda Aguilar MD [address] [place], [place] [id number] PCP - General Internal Medicine 09/15/16 [employer] 2[employer] Shift Relationship Specialty Start Date End Date Ananda Aguilar MD [address] [place], [place] [id number] PCP - General Internal Medicine 09/15/16 [employer] 2Nd Shift Relationship Specialty Start Date End Date Ananda Aguilar MD [address] [place] [address] PCP - General Internal Medicine 09/15/16 [employer]der 2Nd Shift Relationship Specialty Start Date End Date Ananda Aguilar MD [facility] [place] [address] PCP - General Internal Medicine 09/15/16 Welder 2Nd Shift Relationship Specialty Start Date End Date Ananda Aguilar MD [address] [place] [address] PCP - General Internal Medicine 09/15/16 [employer]der 2Nd Shift Relationship Specialty Start Date End Date Ananda Aguilar MD [address] [place] [address] PCP - General Internal Medicine 09/15/16 [employer] 2Nd Shift Relationship Specialty Start Date End Date Ananda Aguilar MD [address] [place] [address] PCP - General Internal Medicine 09/15/16 [employer]der 2Nd Shift Relationship Specialty Start Date End Date Ananda Aguilar MD [address] [place] [address] PCP - General Internal Medicine 09/15/16 Welder 2Nd Shift Relationship Specialty Start Date End Date Ananda Aguilar MD [address] [place] [address] PCP - General Internal Medicine 09/15/16 [employer]der 2Nd Shift Relationship Specialty Start Date End Date Ananda Aguilar MD [address] [place] [address] PCP - General Internal Medicine 09/15/16 [employer]der 2Nd Shift Relationship Specialty Start Date End Date Ananda Aguilar MD [address] [place] [address] PCP - General Internal Medicine 09/15/16 Welder 2Nd Shift Relationship Specialty Start Date End Date Ananda Aguilar MD [address] [place] [address] PCP - General Internal Medicine 09/15/16 Welder 2Nd Shift Relationship Specialty Start Date End Date Ananda Aguilar MD [address] [place] [address] PCP - General Internal Medicine 09/15/16 Welder 2Nd Shift Relationship Specialty Start Date End Date Ananda Aguilar MD [address] [place] [address] PCP - General Internal Medicine 09/15/16 FOR RECORDS PERTAINING TO PATIENTS WHO ARE OR HAVE BEEN ENROLLED IN A CHEMICAL DEPENDENCY/SUBSTANCEABUSE PROGRAM, SOME INFORMATION MAY BE OMITTED. This clinical summary was aggregated from multiple sources. Caution should be exercised in using it in the provision of clinical care. This summary normalizes information from multiple sources, and as a consequence, information in this document may materially change the coding, format and clinical context of patient data. In addition, data may be omitted in some cases. CLINICAL DECISIONS SHOULD BE BASED ON THE PRIMARY CLINICAL RECORDS. [facility]. provides no warranty or guarantee of the accuracy or completeness of information in this document.
[2023-07-14 14:41] LABS: Amphetamine Urine VISTA NEGATIVE (<1000 ng/mL); Barbiturate Urine VISTA NEGATIVE (< 200 ng/mL); Benzodiazepine Urine VISTA NEGATIVE (< 200 ng/mL); Cocaine Urine VISTA NEGATIVE (< 300 ng/mL); Ecstacy Urine VISTA NEGATIVE (< 500 ng/mL); Methadone Urine VISTA NEGATIVE (< 300 ng/mL); PCP Urine VISTA NEGATIVE (< 25 ng/mL); THC Urine VISTA NEGATIVE (< 50 ng/mL); Vista UDS pH Range 7
== END | disposition home or self-care (01) ==
LOC: LAB 13:11
PROVIDERS: PCP Internal Medicine; Referring Provider Anesthesiology Pain Medicine; Visit Provider Anesthesiology Pain Medicine
DX: F11.20 Opioid dependence, uncomplicated (principal)
CPT/HCPCS: 80307

== ENCOUNTER → 2023-09-02 | Outpatient (CLI) | payer MEDICARE, SELFPAY ==
[2023-09-02 12:47] LABS: Amphetamine Urine VISTA NEGATIVE (<1000 ng/mL); Barbiturate Urine VISTA NEGATIVE (< 200 ng/mL); Benzodiazepine Urine VISTA NEGATIVE (< 200 ng/mL); Cocaine Urine VISTA NEGATIVE (< 300 ng/mL); Ecstacy Urine VISTA NEGATIVE (< 500 ng/mL); Methadone Urine VISTA NEGATIVE (< 300 ng/mL); PCP Urine VISTA NEGATIVE (< 25 ng/mL); THC Urine VISTA NEGATIVE (< 50 ng/mL); Vista UDS pH Range 6
== END | disposition home or self-care (01) ==
LOC: LAB 11:37
PROVIDERS: PCP Internal Medicine; Referring Provider Anesthesiology Pain Medicine; Visit Provider Anesthesiology Pain Medicine
DX: F11.20 Opioid dependence, uncomplicated (principal)
CPT/HCPCS: 80307

== ENCOUNTER → 2024-04-26 | Outpatient (CLI) | payer MEDICARE, SELFPAY ==
[2024-04-26 17:27] LABS: Amphetamine Urine VISTA NEGATIVE (<1000 ng/mL); Barbiturate Urine VISTA NEGATIVE (< 200 ng/mL); Benzodiazepine Urine VISTA NEGATIVE (< 200 ng/mL); Cocaine Urine VISTA NEGATIVE (< 300 ng/mL); Ecstacy Urine VISTA NEGATIVE (< 500 ng/mL); Methadone Urine VISTA NEGATIVE (< 300 ng/mL); PCP Urine VISTA NEGATIVE (< 25 ng/mL); THC Urine VISTA NEGATIVE (< 50 ng/mL); Vista UDS pH Range 7
== END | disposition home or self-care (01) ==
LOC: LAB 16:56
PROVIDERS: PCP Internal Medicine; Referring Provider Anesthesiology Pain Medicine; Visit Provider Anesthesiology Pain Medicine
DX: F11.20 Opioid dependence, uncomplicated (principal)
CPT/HCPCS: 80307

== ENCOUNTER → 2024-07-19 | Outpatient (CLI) | payer MEDICARE, SELFPAY ==
[2024-07-19 18:41] LABS: Amphetamine Urine NEGATIVE (<1000 ng/mL); Barbiturate Urine NEGATIVE (< 200 ng/mL); Benzodiazepine Urine NEGATIVE (< 200 ng/mL); Buprenorphine Urine NEGATIVE (< 200 ng/mL); Cocaine Urine NEGATIVE (< 300 ng/mL); Fentanyl, Urine NEGATIVE; Methadone Urine NEGATIVE (< 300 ng/mL); Opiates Urine NEGATIVE (< 300 ng/mL); Oxycodone, Urine NEGATIVE (< 100 ng/mL); PCP Urine NEGATIVE (< 25 ng/mL); THC Urine NEGATIVE (< 50 ng/mL)
== END | disposition home or self-care (01) ==
LOC: LAB 17:12
PROVIDERS: PCP Internal Medicine; Referring Provider Anesthesiology Pain Medicine; Visit Provider Anesthesiology Pain Medicine
DX: F11.20 Opioid dependence, uncomplicated (principal)
CPT/HCPCS: 80307

== ENCOUNTER → 2024-10-11 | Outpatient (CLI) | payer MEDICARE, SELFPAY ==
[2024-10-12 11:06] LABS: Amphetamine Urine NEGATIVE (<1000 ng/mL); Barbiturate Urine NEGATIVE (< 200 ng/mL); Benzodiazepine Urine NEGATIVE (< 200 ng/mL); Buprenorphine Urine NEGATIVE (< 200 ng/mL); Cocaine Urine NEGATIVE (< 300 ng/mL); Fentanyl, Urine NEGATIVE; Methadone Urine NEGATIVE (< 300 ng/mL); Opiates Urine PRESUMPTIVE POSITIVE (< 300 ng/mL); Oxycodone, Urine NEGATIVE (< 100 ng/mL); PCP Urine NEGATIVE (< 25 ng/mL); THC Urine NEGATIVE (< 50 ng/mL)
== END | disposition home or self-care (01) ==
LOC: LAB 15:38
PROVIDERS: PCP Internal Medicine; Referring Provider Anesthesiology Pain Medicine; Visit Provider Anesthesiology Pain Medicine
DX: F11.20 Opioid dependence, uncomplicated (principal)
CPT/HCPCS: 80307